=== PATIENT | female | born 1960 | race Caucasian/White ===

== ENCOUNTER 2022-05-08 15:07 | Outpatient (CLI) | payer BC | END 2022-05-08 15:08 | disposition home or self-care (01) | LOC: CTENTCT 15:07 | PROVIDERS: ATTEND Student in an Organized Health Care Education/Training Program | DX: J32.9 Chronic sinusitis, unspecified (principal) | CPT/HCPCS: 70486 ==

== ENCOUNTER 2022-06-06 13:14 | Outpatient (CLI) | payer BC | END 2022-06-06 13:15 | disposition home or self-care (01) | LOC: LABBT 13:14 | PROVIDERS: ATTEND Student in an Organized Health Care Education/Training Program | DX: J01.90 Acute sinusitis, unspecified (principal); J30.9 Allergic rhinitis, unspecified; J34.3 Hypertrophy of nasal turbinates; J34.2 Deviated nasal septum; R09.81 Nasal congestion; R09.82 Postnasal drip; R68.89 Other general symptoms and signs; Z20.822 Contact with and (suspected) exposure to COVID-19 | CPT/HCPCS: 85014; 87811 ==

== ENCOUNTER 2022-06-11 10:12 | Day surgery (SDC) | payer BC ==
[2022-06-07 15:41] VITALS: BMI 25.1
[2022-06-11] MEDS ORDERED: Oxymetazoline HCl 0.05% (30 ML BOT) ONE ×2 (11:00→15:16)
[2022-06-11] MEDS ORDERED: Bacitracin Zinc Ointment 30 gm TUBE ONE (15:16)
[2022-06-11] MEDS ORDERED: fentaNYL Citrate/PF 100 MCG/2 ML SYRINGE ONE ×2 (15:35→19:33)
[2022-06-11] MEDS ORDERED: Propofol 1,000 MG/100 ML VIAL IV ONE ×2 (15:44→17:46)
[2022-06-11] MEDS ORDERED: Lidocaine 1% PF 5 ML VIAL ONE (15:54)
[2022-06-11] MEDS ORDERED: Dexamethasone 20 MG/5 ML VIAL ONE (15:54)
[2022-06-11] MEDS ORDERED: ePHEDrine 50 MG/ML VIAL ONE (15:54)
[2022-06-11] MEDS ORDERED: Lidocaine 1% w/Epinephrine 1:100K 20 ML VIAL ONE (15:54)
[2022-06-11] MEDS ORDERED: Rocuronium Bromide 10 MG/ML (10ML VIAL) ONE (15:54)
[2022-06-11] MEDS ORDERED: PROPOFOL 200 MG/20 ML VIAL ONE (15:54)
[2022-06-11] MEDS ORDERED: Neostigmine Methylsulfate 3 MG/3 ML SYRINGE ONE (15:54)
[2022-06-11] MEDS ORDERED: Glycopyrrolate 0.2 MG/ML 5 ML SYRINGE ONE (15:54)
[2022-06-11] MEDS ORDERED: Ondansetron PF 4 MG/2 ML Vial ONE ×3 (15:54→22:43)
[2022-06-11] MEDS ORDERED: Phenylephrine 10 MG/ML VIAL ONE (15:54)
[2022-06-11] MEDS ORDERED: Triamcinolone 40 MG/ML VIAL ONE (18:47)
[2022-06-11] MEDS ORDERED: Promethazine HCl 25 MG/ML VIAL ONE (21:45)
[2022-06-11] MEDS ORDERED: Promethazine 25 MG TAB ONE (21:46)
[2022-06-11] MEDS ORDERED: Hydrocodone-Acetamin 15 ML UDCUP ONE (21:46)
[2022-06-11] MEDS ORDERED: Famotidine/PF 20 mg/2ml Vial ONE (22:56)
[2022-06-11] MEDS ORDERED: Metoclopramide HCl 10 MG/2 ML VIAL ONE (22:57)
[2022-06-11] MEDS ORDERED: HYDROcodone/Acetaminophen 5/325 mg Tablet ONE (23:07)
== END 2022-06-11 23:20 | disposition home or self-care (01) ==
LOC: SDC 10:12
PROVIDERS: ATTEND Student in an Organized Health Care Education/Training Program
PROC: 09QW4ZZ Repair Right Sphenoid Sinus, Percutaneous Endoscopic Approach (ICD-10-PCS; principal; 2022-06-11)
PROC: 09QK0ZZ Repair Nasal Mucosa and Soft Tissue, Open Approach (ICD-10-PCS; principal; 2022-06-11)
PROC: 09QT4ZZ Repair Left Frontal Sinus, Percutaneous Endoscopic Approach (ICD-10-PCS; principal; 2022-06-11)
PROC: 09QS4ZZ Repair Right Frontal Sinus, Percutaneous Endoscopic Approach (ICD-10-PCS; principal; 2022-06-11)
PROC: 09SM0ZZ Reposition Nasal Septum, Open Approach (ICD-10-PCS; principal; 2022-06-11)
PROC: 09QQ4ZZ Repair Right Maxillary Sinus, Percutaneous Endoscopic Approach (ICD-10-PCS; principal; 2022-06-11)
PROC: 09QR4ZZ Repair Left Maxillary Sinus, Percutaneous Endoscopic Approach (ICD-10-PCS; principal; 2022-06-11)
PROC: 8E09XBZ Computer Assisted Procedure of Head and Neck Region (ICD-10-PCS; principal; 2022-06-11)
PROC: 09QX4ZZ Repair Left Sphenoid Sinus, Percutaneous Endoscopic Approach (ICD-10-PCS; principal; 2022-06-11)
PROC: 09TL8ZZ Resection of Nasal Turbinate, Via Natural or Artificial Opening Endoscopic (ICD-10-PCS; principal; 2022-06-11)
DX: J32.9 Chronic sinusitis, unspecified (principal); J34.2 Deviated nasal septum; J34.3 Hypertrophy of nasal turbinates; J34.89 Other specified disorders of nose and nasal sinuses; J30.9 Allergic rhinitis, unspecified; E03.9 Hypothyroidism, unspecified; I47.1 Supraventricular tachycardia; Z79.890 Hormone replacement therapy; Z79.899 Other long term (current) drug therapy; Z88.1 Allergy status to other antibiotic agents; Z88.8 Allergy status to other drugs, medicaments and biological substances; Z91.048 Other nonmedicinal substance allergy status
CPT/HCPCS: 93005; 93010; C1889; J1100; J2370; J2405; J2550; J2704; J2765; J3301; J3490; Q0169; S0028

== ENCOUNTER 2023-08-05 14:46 | Outpatient (CLI) | payer OTHER | END 2023-08-05 14:47 | disposition home or self-care (01) | LOC: ULT 14:46 | PROVIDERS: ATTEND Family Medicine | DX: R10.30 Lower abdominal pain, unspecified (principal) | CPT/HCPCS: 76856 ==

== ENCOUNTER 2023-08-06 14:35 | Outpatient (CLI) | payer BC, OTHER | END 2023-08-06 14:36 | disposition home or self-care (01) | LOC: BICMAMMO 14:35 | PROVIDERS: ATTEND Family Medicine | DX: Z12.31 Encounter for screening mammogram for malignant neoplasm of breast (principal); Z80.3 Family history of malignant neoplasm of breast; Z98.82 Breast implant status; Z91.89 Other specified personal risk factors, not elsewhere classified | CPT/HCPCS: 77063; 77067 ==

== ENCOUNTER 2024-05-06 13:02 | Emergency (ER) | payer OTHER ==
[2024-05-06] MEDS ORDERED: methylPREDNISolone Sod Succ/PF 125 MG/2 ML VIAL ONE (14:12)
[2024-05-06 14:13] LABS: #Basophils Less than 0.03 10x3/uL (0.0-0.2); %Basophils 0.4 % (0.0-1.0); %Eosinophils 1.4 % (0.0-10.0); %Lymphocytes 31.7 % (21.0-51.0); %Monocytes 9.1 % (0.0-10.0); Hematocrit 41.6 % (36.0-47.0); Hemoglobin 13.2 g/dL (12.0-16.0); Mean Corpuscular HGB CONC 31.7 g/dL (32.0-36.0); Mean Corpuscular Hemoglobin 29.2 pg (27.0-31.0); Mean Platelet Volume 10.3 fL (7.4-10.4); Platelet Count 241 10x3/uL (130-400); RBC Distribution Width 13.1 % (11.5-14.5); Red Blood Cell (RBC) Count 4.52 mill/uL (4.20-5.40)
[2024-05-06 14:25] LABS: ALT (SGPT) 17 U/L (8-55); AST (SGOT) 18 U/L (5-34); Albumin 3.9 g/dL (3.4-4.8); Alkaline Phosphatase 79 U/L (40-110); Anion Gap 12 mmol/L (10-20); BUN (Urea Nitrogen) 10 mg/dL (9.8-20.1); Bilirubin, Total 0.3 mg/dL (0.2-1.2); CRP,High Sensitivity (Inhouse) 0.07 mg/dL (< or = 0.5); Calc. Creatinine Clearance 0 mL/min (70-130); Calcium 9.5 mg/dL (7.8-10.44); Carbon Dioxide 25 mmol/L (23-31); Chloride 111 mmol/L (98-107); Estimated GFR 92; Globulin 2.8 g/dL (2.4-3.5); Glucose 74 mg/dL (80-115); Potassium 3.7 mmol/L (3.5-5.1); Protein, Total 6.7 g/dL (5.8-8.1); Sodium 144 mmol/L (136-145)
== END 2024-05-06 16:36 | disposition home or self-care (01) ==
LOC: ERS 13:02
DX: R51.9 Headache, unspecified (principal); Z55.6 Problems related to health literacy
CPT/HCPCS: 36415; 70450; 80053; 85025; 86141; 96374; J2930

== ENCOUNTER 2024-05-19 14:37 | Outpatient (CLI) | payer OTHER | END 2024-05-19 14:38 | disposition home or self-care (01) | LOC: SCSMRI 14:37 | PROVIDERS: ATTEND Family Medicine | DX: H53.9 Unspecified visual disturbance (principal); M53.80 Other specified dorsopathies, site unspecified; D32.0 Benign neoplasm of cerebral meninges | CPT/HCPCS: 70544; 70549; 70553 ==

== ENCOUNTER 2024-08-10 14:15 | Outpatient (CLI) | payer OTHER | END 2024-08-10 14:16 | disposition home or self-care (01) | LOC: BICMAMMO 14:15 | PROVIDERS: ATTEND Family Medicine | DX: Z12.31 Encounter for screening mammogram for malignant neoplasm of breast (principal); Z80.3 Family history of malignant neoplasm of breast; Z98.82 Breast implant status; Z91.89 Other specified personal risk factors, not elsewhere classified | CPT/HCPCS: 77063; 77067 ==